=== PATIENT | female | born 1980 | race Caucasian/White ===

== ENCOUNTER 2017-08-13 03:09 | Emergency (ER) | payer OTHER ==
[2017-08-13 03:28] VITALS: BP 110/73
--- NOTE | 2017-08-13 04:02 | ER Document Report ---
ED ENT - General Chief Complaint: Sore Throat Stated Complaint: SORE THROAT Time Seen by Provider: 08/13/17 03:40 Mode of Arrival: Ambulatory Information source: Patient TRAVEL OUTSIDE OF THE [place] IN LAST 30 DAYS: No - HPI Patient complains to provider of: Throat problem Onset: This morning Onset/Duration: Gradual, Persistent Quality of pain: Achy Severity: Moderate Pain Level: 3 Location of pain: Throat Associated symptoms: Cough, Headache Notes: Patient is a 37-year-old female presenting to the emergency room complaining of throat pain since earlier today with left ear pain as well, and a mild headache , she has had a nonproductive cough, no fever, no vomiting or diarrhea, no sick contacts - Related Data Allergies/Adverse Reactions: No Known Allergies Allergy (Unverified 08/13/17 03:25) Past Medical History - General Information source: Patient - Social History Smoking Status: Unknown if Ever Smoked Family History: Reviewed & Not Pertinent Renal/ Medical History: Denies: Hx Peritoneal Dialysis Past Surgical History: Reports: Hx Tubal Ligation - Immunizations Hx Diphtheria, Pertussis, Tetanus Vaccination: Yes Review of Systems - Review of Systems Constitutional: No symptoms reported EENT: See HPI Cardiovascular: No symptoms reported Respiratory: No symptoms reported Gastrointestinal: No symptoms reported Genitourinary: No symptoms reported Female Genitourinary: No symptoms reported Musculoskeletal: No symptoms reported Skin: No symptoms reported Hematologic/Lymphatic: No symptoms reported Neurological/Psychological: Headaches -: Yes All other systems reviewed and negative Physical Exam - Vital signs Vitals: Temp Pulse Resp BP Pulse Ox 98.4 F 81 17 110/73 97 08/13/17 03:25 08/13/17 03:25 08/13/17 03:25 08/13/17 03:25 08/13/17 03:25 Interpretation: Normal - General General appearance: Appears well, Alert - HEENT Head: Normocephalic, Atraumatic Eyes: Normal Conjunctiva: Normal Extraocular movements intact: Yes Eyelashes: Normal Pupils: PERRL Ears: Normal External canal: Normal Tympanic membrane: Bulging. No: Injected Pharynx: Erythema. No: Exudate Neck: Normal - Respiratory Respiratory status: No respiratory distress Chest status: Nontender Breath sounds: Normal Chest palpation: Normal - Cardiovascular Rhythm: Regular Heart sounds: Normal auscultation Murmur: No - Abdominal Inspection: Normal Distension: No distension Bowel sounds: Normal Tenderness: Nontender Organomegaly: No organomegaly - Back Back: Normal, Nontender - Extremities General upper extremity: Normal inspection, Nontender, Normal color, Normal ROM , Normal temperature General lower extremity: Normal inspection, Nontender, Normal color, Normal ROM , Normal temperature, Normal weight bearing. No: Andre's sign - Neurological Neuro grossly intact: Yes Cognition: Normal Orientation: AAOx4 [place] Coma Scale Eye Opening: Spontaneous [place] Coma Scale Verbal: Oriented Randy Coma Scale Motor: Obeys Commands Randy Coma Scale Total: 15 Speech: Normal Motor strength normal: LUE, RUE, LLE, RLE Sensory: Normal - Psychological Associated symptoms: Normal affect, Normal mood - Skin Skin Temperature: Warm Skin Moisture: Dry Skin Color: Normal Course - Re-evaluation Re-evalutation: 08/13/17 04:30 Patient's rapid strep test was negative, however her posterior pharynx is quite beefy red, there were no exudates, and she is afebrile, I informed patient that symptoms are likely viral in nature, however a throat culture is pending and may come back with different findings, therefore she was given a prescription for penicillin and advised to take only if her symptoms worsen or she develops a fever in the next few days, or if she should receive a phone call from this hospital reporting her throat cultures have different findings than the rapid strep test, patient acknowledges understanding and agreement with this plan - Vital Signs Vital signs: Temp Pulse Resp BP Pulse Ox 98.4 F 81 17 110/73 97 08/13/17 03:25 08/13/17 03:25 08/13/17 03:25 08/13/17 03:25 08/13/17 03:25 Discharge - Discharge Clinical Impression: Sore throat Condition: Stable Disposition: HOME, SELF-CARE Instructions: Penicillin V K ([facility]), Sore Throat ([facility]), Strep Throat ([facility]) Additional Instructions: Although your strep test came back negative today your physical exam findings are consistent with possible strep pharyngitis. You have been given an antibiotic prescription in case her symptoms worsen. If you develop a fever or your sore throat worsens you should start taking this medication. Return to the emergency room immediately if symptoms worsen or any additional concerns. Follow-up with your primary care provider in 1-2 days. Prescriptions: Penicillin V Potassium [Penicillin Vk 500 mg Tablet] 500 mg PO BID #20 tablet
== END 2017-08-13 04:31 | disposition home or self-care (01) ==
LOC: ER 03:09
DX: J02.9 Acute pharyngitis, unspecified (principal); R51 Headache; R05 Cough
CPT/HCPCS: 87070; 87880; 99283

== ENCOUNTER 2018-09-03 22:00 | Emergency (ER) | payer OTHER ==
[2018-09-03 23:05] LABS: APPEARANCE,URINE CLEAR; BILIRUBIN,URINE NEGATIVE (NEGATIVE); COLOR,URINE STRAW; GLUCOSE, URINE NEGATIVE (NEGATIVE); KETONES,URINE NEGATIVE (NEGATIVE); LEUKOCYTE ESTERASE,URINE NEGATIVE (NEGATIVE); NITRITE,URINE NEGATIVE (NEGATIVE); PROTEIN,URINE NEGATIVE (NEGATIVE); UROBILINOGEN,URINE NEGATIVE mg/dL (<2.0)
[2018-09-03 23:06] LABS: URINE SPECIFIC GRAVITY 1.006
[2018-09-03 23:08] LABS: ABSOLUTE EOSINOPHILS # (AUTO) 0.3 10^3/uL (0.0-0.6); ABSOLUTE LYMPHOCYTES (AUTO) 0.7 10^3/uL (0.5-4.7); ABSOLUTE MONOCYTES (AUTO) 0.3 10^3/uL (0.1-1.4); BASOPHILS % (AUTO) 0.6 % (0-2); EOSINOPHILS % (AUTO) 5.2 % (0-6); HEMATOCRIT 36.2 % (36.0-47.0); HEMOGLOBIN 12.5 g/dL (12.0-15.5); LYMPHOCYTES % (AUTO) 10.5 % (13-45); MEAN CORPUSCULAR HEMOGLOBIN 29.6 pg (27.0-33.4); MEAN CORPUSCULAR HGB CONC 34.5 g/dL (32.0-36.0); MEAN CORPUSCULAR VOLUME 86 fl (80-97); PLATELET COUNT 210 10^3/uL (150-450); RED BLOOD COUNT 4.21 10^6/uL (3.72-5.28); RED CELL DISTRIBUTION WIDTH 12.9 % (11.5-14.0); SEGMENTED NEUTROPHILS % (AUTO) 79.7 % (42-78); TOTAL CELLS COUNTED % (AUTO) 100 %; WHITE BLOOD COUNT 6.3 10^3/uL (4.0-10.5)
[2018-09-03] MEDS ORDERED: ONDANSETRON 4 MG TAB.RAPDIS PO ONE (23:15)
--- NOTE | 2018-09-03 23:15 | ER Document Report ---
ED General - General Chief Complaint: Fever Stated Complaint: FEVER/VOMITING/LOWER BACK PAIN Time Seen by Provider: 09/03/18 22:40 Notes: Patient is a 38-year-old female without chronic medical problems who presents with multiple complaints. Her initial stated complaint is of fever as well as nausea and vomiting. However on my assessment she is complaining mostly about sinus pressure, postnasal drip and a feeling of nausea. She denies any abdominal pain. She states that she is having an intermittent, moderate to severe squeezing pain to her bilateral low back just above the level of her hip. Nothing improves or worsens her symptoms. Denies a history of similar symptoms in the past. Symptoms of been ongoing for approximately the past 10 days. She has seen her primary care doctor who is trying to discover the etiology of her rhinitis. She has not had a recorded fever at home only felt hot. TRAVEL OUTSIDE OF THE [place] IN LAST 30 DAYS: No - Related Data Allergies/Adverse Reactions: No Known Allergies Allergy (Unverified 08/13/17 03:25) Past Medical History - General Information source: Patient - Social History Smoking Status: Never Smoker Frequency of alcohol use: None Drug Abuse: None Lives with: Family Family History: Reviewed & Not Pertinent Renal/ Medical History: Denies: Hx Peritoneal Dialysis Past Surgical History: Reports: Hx Tubal Ligation - Immunizations Hx Diphtheria, Pertussis, Tetanus Vaccination: Yes Review of Systems - Review of Systems Notes: Constitutional: Negative for fever. HENT: Positive for sinus pressure and sore throat Eyes: Negative for visual changes. Cardiovascular: Negative for chest pain. Respiratory: Negative for shortness of breath. Gastrointestinal: Negative for abdominal pain, positive for nausea and vomiting Genitourinary: Negative for dysuria. Musculoskeletal: Positive for low back pain Skin: Negative for rash. Neurological: Negative for headaches, weakness or numbness. 10 point ROS negative except as marked above and in HPI. Physical Exam - Vital signs Vitals: Temp Pulse Resp BP Pulse Ox 99.1 F 86 16 100/62 98 09/03/18 22:17 09/03/18 22:17 09/03/18 22:17 09/03/18 22:17 09/03/18 22:17 Interpretation: Normal Notes: PHYSICAL EXAMINATION: GENERAL: Well-appearing, well-nourished and in no acute distress. HEAD: Atraumatic, normocephalic. EYES: Pupils equal round and reactive to light, extraocular movements intact, sclera anicteric, conjunctiva are normal. ENT: nares patent, oropharynx clear without exudates. Moist mucous membranes. NECK: Normal range of motion, supple without lymphadenopathy LUNGS: Breath sounds clear to auscultation bilaterally and equal. No wheezes rales or rhonchi. HEART: Regular rate and rhythm without murmurs ABDOMEN: Soft, nontender, normoactive bowel sounds. No guarding, no rebound. No masses appreciated. EXTREMITIES: Normal range of motion, no pitting or edema. No cyanosis. NEUROLOGICAL: No focal neurological deficits. Moves all extremities spontaneously and on command. PSYCH: Normal mood, normal affect. SKIN: Warm, Dry, normal turgor, no rashes or lesions noted. Course - Re-evaluation Re-evalutation: 09/03/18 23:14 Patient presents with multiple vague complaints that did not appear to be concerning for any acute life-threatening pathology. Vitals are within normal limits at triage and at time of discharge. Physical examination is unremarkable. Patient has tolerated oral intake without difficulty. Patient was not noted to be in distress at any point during their ER visit. Contrary to triage assessment the patient has not had a recorded fever at home and she also denies abdominal pain. Her only complaint is of sinus congestion, rhinorrhea, which she states has not been controlled with [id number] antihistamines or decongestants. She is currently following with her primary care doctor regarding this issue. At this time, based on the reassuring evaluation, I do not suspect an acute KS, pulmonary embolus, aortic dissection, acute intra-abdominal pathology, stroke, or sepsis. Will discharge with return precautions and follow-up recommendations. Verbal discharge instructions given a the bedside and opportunity for questions given. Medication warnings reviewed. Patient is in agreement with this plan and has verbalized understanding of return precautions and the need for primary care follow-up in the next 24-72 hours. - Vital Signs Vital signs: Temp Pulse Resp BP Pulse Ox 99.1 F 86 16 100/62 98 09/03/18 22:17 09/03/18 22:17 09/03/18 22:17 09/03/18 22:17 09/03/18 22:17 - Laboratory Result Diagrams: 09/03/18 22:52 09/03/18 22:52 Laboratory results interpreted by me: 09/03/18 09/03/18 22:52 22:52 Seg Neutrophils % 79.7 H Lymphocytes % 10.5 L Urine Blood SMALL H Discharge - Discharge Clinical Impression: Spasm of muscle of lower back, Nasal congestion, Nausea Allergic rhinitis Qualifiers: Allergic rhinitis trigger: unspecified Allergic rhinitis seasonality: unspecified Qualified Code(s): J30.9 - Allergic rhinitis, unspecified Condition: Good Disposition: HOME, SELF-CARE Additional Instructions: Please return to the emergency room immediately if you experience any concerning symptoms including high fevers, severe headache, chest pain, difficulty breathing, abdominal pain, slurred speech, numbness or weakness in your arms or legs, or any other symptom that concerns you.
[2018-09-03 23:17] LABS: ALANINE AMINOTRANSFERASE 30 U/L (9-52); ALBUMIN 3.8 g/dL (3.5-5.0); ALKALINE PHOSPHATASE 56 U/L (38-126); ANION GAP 7 (5-19); ASPARTATE AMINO TRANSFERASE 24 U/L (14-36); BILIRUBIN,DIRECT 0.2 mg/dL (0.0-0.4); BILIRUBIN,TOTAL 1.1 mg/dL (0.2-1.3); BLOOD UREA NITROGEN 8 mg/dL (7-20); CALCIUM 8.9 mg/dL (8.4-10.2); CARBON DIOXIDE 26 mmol/L (22-30); CHLORIDE 106 mmol/L (98-107); GLUCOSE 90 mg/dL (75-110); POTASSIUM 4.1 mmol/L (3.6-5.0); SODIUM 138.6 mmol/L (137-145); TOTAL PROTEIN 6.7 g/dL (6.3-8.2)
[2018-09-04 00:25] VITALS: BP 94/49
== END 2018-09-04 00:29 | disposition home or self-care (01) ==
LOC: ER 22:00
DX: J30.9 Allergic rhinitis, unspecified (principal); M62.830 Muscle spasm of back; R11.2 Nausea with vomiting, unspecified; R09.82 Postnasal drip; R09.81 Nasal congestion; J34.89 Other specified disorders of nose and nasal sinuses; J02.9 Acute pharyngitis, unspecified; M54.5 Low back pain
CPT/HCPCS: 99283; 36415; 84703; 85025; 80053; 81001; S0119

== ENCOUNTER 2018-09-23 19:39 | Observation (INO) | payer OTHER ==
[2018-09-23] MEDS ORDERED: CEFTRIAXONE 1 GM/D5W RTU 1 GM/50 ML RTUPB IV ONE (20:30)
[2018-09-23] MEDS ORDERED: HYDROMORPHONE HCL INJ/PF 2 MG/ML AMPULE IV ONE (20:30)
--- NOTE | 2018-09-23 20:31 | ER Document Report ---
ED Hand/Wrist Injury - General Mode of Arrival: Ambulatory Information source: Patient TRAVEL OUTSIDE OF THE [place] IN LAST 30 DAYS: No - HPI Injury to: Small finger Onset: Just prior to arrival Where: Home <FEDERICO RAYMOND - Last Filed: 09/23/18 23:45> <FREDRICK DE JESUS - Last Filed: 09/23/18 23:51> - General Chief Complaint: Finger Injury Stated Complaint: POSSIBLE BROKEN FINGER Time Seen by Provider: 09/23/18 20:20 Notes: Patient is a 38-year-old female presenting to the emergency department complaining 5th digit pain of the right hand onset tonight. Patient states she had her hand in a door when her boyfriend accidentally slammed the door. Patient repeatedly expresses concern for losing her 5th digit. She states her last meal was around 1700. Patient is up to date on her vaccines. (FEDERICO RAYMOND) - Related Data Allergies/Adverse Reactions: No Known Allergies Allergy (Unverified 08/13/17 03:25) Past Medical History - General Information source: Patient - Social History Smoking Status: Former Smoker Frequency of alcohol use: None Drug Abuse: None Family History: Reviewed & Not Pertinent Patient has suicidal ideation: No Patient has homicidal ideation: No Past Surgical History: Reports: Hx Tubal Ligation - Immunizations Hx Diphtheria, Pertussis, Tetanus Vaccination: Yes <FEDERICO RAYMOND - Last Filed: 09/23/18 23:45> Review of Systems - Review of Systems Constitutional: No symptoms reported EENT: No symptoms reported Cardiovascular: No symptoms reported Respiratory: No symptoms reported Gastrointestinal: No symptoms reported Genitourinary: No symptoms reported Female Genitourinary: No symptoms reported Musculoskeletal: See HPI Skin: No symptoms reported Hematologic/Lymphatic: No symptoms reported Neurological/Psychological: No symptoms reported -: Yes All other systems reviewed and negative <FEDERICO RAYMOND - Last Filed: 09/23/18 23:45> Physical Exam <FEDERICO RAYMOND - Last Filed: 09/23/18 23:45> <FREDRICK DE JESUS - Last Filed: 09/23/18 23:51> - Vital signs Vitals: Temp Pulse Resp BP Pulse Ox 99.2 F 103 H 22 H 120/78 100 09/23/18 20:05 09/23/18 20:05 09/23/18 20:05 09/23/18 20:05 09/23/18 20:05 - Notes Notes: GENERAL: Alert,crying. No acute distress. HEAD: Normocephalic, atraumatic. EYES: Pupils equal, round, and reactive to light. Extraocular movements intact. ENT: Oral mucosa moist, tongue midline. NECK: Full range of motion. Supple. Trachea midline. LUNGS: Clear to auscultation bilaterally, no wheezes, rales, or rhonchi. No respiratory distress. HEART: Regular rate and rhythm. No murmurs, gallops, or rubs. EXTREMITIES: Moves all 4 extremities spontaneously. Small abrasion to the radial aspect of the right 5th digit just proximal to the PIP joint. 1.5 cm laceration on the ulnar aspect just proximal to the PIP joint extending to the DIP joint. Sensations intact. Able to move pinky. Able to fully extend pinky finger. Unable fully flex 5th digit. NEUROLOGICAL: Alert and oriented x3. Normal speech. PSYCH: Crying, appears anxious. SKIN: Warm, dry, normal turgor. (FEDERICO RAYMOND) Course <FEDERICO RAYMOND - Last Filed: 09/23/18 23:45> <FREDRICK DE JESUS - Last Filed: 09/23/18 23:51> - Re-evaluation Re-evalutation: 09/23/18 20:[address] Mejía who states he will admit the patient to his services. Recommends to start Rocephin and to splint in the position of comfort. (FEDERICO RAYMOND) 09/23/18 20:32 X-ray shows comminuted displaced fracture of the proximal phalanx of the fifth digit of the right hand, this is an open fracture, it will need a washout and likely need to be pinned. I discussed with Dr. Mejía who asks her to be admitted to his service, it will be splinted in position of comfort, reduction will not be attempted, patient will be started on Rocephin and given pain medication. (FREDRICK DE JESUS) - Vital Signs Vital signs: Temp Pulse Resp BP Pulse Ox 99.2 F 103 H 22 H 120/78 100 09/23/18 20:05 09/23/18 20:05 09/23/18 20:05 09/23/18 20:05 09/23/18 20:05 Procedures - Immobilization Right Hand 5th digit Pre-Proc Neuro Vasc Exam: Normal Immobilizer type: Finger splint (Static) Performed by: RN, PCT Post-Proc Neuro Vasc Exam: Normal, Unchanged from pre-exam Alignment checked and good: No - No attempt at reduction was made, surgery scheduled for tomorrow <FREDRICK DE JESUS - Last Filed: 09/23/18 23:51> Discharge <FEDERICO RAYMOND - Last Filed: 09/23/18 23:45> - Discharge Admitting Provider: [facility] Unit Admitted: Surgical Floor <FREDRICK DE JESUS - Last Filed: 09/23/18 23:51> - Discharge Clinical Impression: Open fracture proximal phalanx finger Qualifiers: Encounter type: initial encounter Finger: little finger Fracture alignment: displaced Laterality: right Qualified Code(s): S62.616B - Displaced fracture of proximal phalanx of right little finger, initial encounter for open fracture Condition: Stable Disposition: ADMITTED INPATIENT Scribe Attestation: 09/23/18 23:51 I personally performed the services described in the documentation, reviewed and edited the documentation which was dictated to the scribe in my presence, and it accurately records my words and actions. (FREDRICK DE JESUS) Scribe Documentation - Scribe Written by Scribe:: Alexx Connelly, 09/23/2018 20:46 acting as scribe for :: Mark <FEDERICO RAYMOND - Last Filed: 09/23/18 23:45>
--- NOTE | 2018-09-23 20:40 | RADIOLOGY REPORT (SQ) ---
EXAM DESCRIPTION: FINGER RIGHT COMPLETED DATE/TIME: 09/23/2018 7:55 pm REASON FOR STUDY: Finger injury- closed in door. Slammed finger in the garage door. COMPARISON: None. NUMBER OF VIEWS: Three views. TECHNIQUE: AP view of the right hand and lateral, and oblique images acquired of the right fifth fin danielle. LIMITATIONS: None. FINDINGS: MINERALIZATION: Normal. BONES: There is an oblique, displaced fracture through the shaft of the 5th proximal phalanx. There is dorsal dislocation of the distal fracture fragment. There is approximately 7 mm bayonet appositio n of the fracture fragments. SOFT TISSUES: Soft tissue swelling at the 5th finger. No radiopaque foreign body. IMPRESSION: Displaced fracture through the shaft of the 5th proximal phalanx with dorsal dislocation of the distal fracture fragment. Soft tissue swelling at the 5th finger. COMMENT: SITE OF TRAUMA/COMPLAINT MARKED/STAMP COMPLETED: NO. TECHNICAL DOCUMENTATION: JOB ID: [id number] [employer]- All Rights Reserved Reading location - IP/workstation name: [email or web address]
[2018-09-23] MEDS ORDERED: OXYCODONE-ACETAMINOPHEN 5-325 MG TABLET PO ONE (22:27)
[2018-09-24] MEDS ORDERED: DEXTROSE 40% GEL 15 GM TUBE PO PRN ×2 (00:28)
[2018-09-24] MEDS ORDERED: GLUCAGON,HUMAN RECOMB 1 MG INJ SUBCUT PRN (00:28)
[2018-09-24] MEDS ORDERED: DEXTROSE 50%-WATER 25 GM/50 ML DISP.SYRIN IV PRN ×2 (00:28)
[2018-09-24] MEDS ORDERED: RINGERS SOLUTION,LACTATED 1,000 ML IV PRN (00:40)
[2018-09-24] MEDS: MORPHINE SULFATE 10 MG/ML INJ IV PRN ×3 (01:23→13:45)
--- NOTE | 2018-09-24 07:03 | PDOC H&P ---
History of Present Illness Admission Date/PCP: 09/23/18 20:49 ANT SELBY JR, MD History of Present Illness: LUIS BOBO is a 38 year old female 38-year-old white female [id number] who sustained a right hand injury when her small finger was caught in a car door. She was brought to the emergency room where an open proximal phalanx fracture was identified. She is admitted to orthopedic service for fracture management. Past Medical History Medical History: None Past Surgical History Past Surgical History: Reports: Tubal Ligation Social History Information Source: Patient, [facility] Records Smoking Status: Never Smoker Drugs: None - Advance Directive Resuscitation Status: Full Code Family History Family History: Reviewed & Not Pertinent Parental Family History Reviewed: No Children Family History Reviewed: No Sibling(s) Family History Reviewed.: No Medication/Allergy Home Medications: No Home Medications 09/23/18 Allergies/Adverse Reactions: No Known Allergies Allergy (Unverified 08/13/17 03:25) Review of Systems All systems: as per [facility] Physical Exam Vital Signs: Temp Pulse Resp BP Pulse Ox 36.6 C 67 17 98/62 L 100 09/24/18 00:16 09/24/18 00:16 09/24/18 00:16 09/24/18 00:16 09/24/18 00:16 Intake & Output 09/23/18 09/24/18 09/25/18 06:59 06:59 06:59 Weight 74.9 kg General appearance: PRESENT: no acute distress, mild distress, well-nourished Head exam: PRESENT: normocephalic Respiratory exam: PRESENT: unlabored Cardiovascular exam: PRESENT: RRR Pulses: PRESENT: normal radial pulses Vascular exam: PRESENT: normal capillary refill GI/Abdominal exam: PRESENT: soft Rectal exam: PRESENT: deferred Extremities exam: PRESENT: other - Capillary refill to the tuft of the small finger. Sensory examination intact to light touch. Swelling and ecchymosis over the ring finger. Neurological exam: PRESENT: alert, awake, oriented to person, oriented to place , oriented to time, oriented to situation. ABSENT: motor sensory deficit Psychiatric exam: PRESENT: appropriate affect, normal mood. ABSENT: homicidal ideation, suicidal ideation Skin exam: PRESENT: dry, intact, warm. ABSENT: cyanosis, rash Results Impressions: Finger X-Ray 09/23/18 00:00 IMPRESSION: Displaced fracture through the shaft of the 5th proximal phalanx with dorsal dislocation of the distal fracture fragment. Soft tissue swelling at the 5th finger. Status: Imported from PACS Assessment & Plan - Diagnosis (1) Open fracture proximal phalanx finger Qualifiers: Encounter type: initial encounter Finger: little finger Fracture alignment: displaced Laterality: right Qualified Code(s): S62.616B - Displaced fracture of proximal phalanx of right little finger, initial encounter for open fracture Is this a current diagnosis for this admission?: Yes Plan: Plan for irrigation debridement possible ORIF of right proximal phalanx fracture - Time Time Spent: 50 to 70 Minutes Anticipated discharge: Home Within: within 24 hours
[2018-09-24 07:18] LABS: HEMATOCRIT 30.7 % (36.0-47.0); HEMOGLOBIN 10.7 g/dL (12.0-15.5); MEAN CORPUSCULAR HEMOGLOBIN 29.6 pg (27.0-33.4); MEAN CORPUSCULAR HGB CONC 34.9 g/dL (32.0-36.0); MEAN CORPUSCULAR VOLUME 85 fl (80-97); PLATELET COUNT 188 10^3/uL (150-450); RED BLOOD COUNT 3.61 10^6/uL (3.72-5.28); RED CELL DISTRIBUTION WIDTH 12.8 % (11.5-14.0)
[2018-09-24] MEDS ORDERED: CEFTRIAXONE SODIUM 2,000 MG in DEXTROSE 5%-WATER 100 ML IV PRN (07:19)
[2018-09-24 07:23] LABS: PROTHROMBIN TIME 15.8 SEC (11.4-15.4)
[2018-09-24 07:37] LABS: ANION GAP 8 (5-19); BLOOD UREA NITROGEN 13 mg/dL (7-20); CALCIUM 8.6 mg/dL (8.4-10.2); CARBON DIOXIDE 24 mmol/L (22-30); CHLORIDE 109 mmol/L (98-107); GLUCOSE 91 mg/dL (75-110); POTASSIUM 3.8 mmol/L (3.6-5.0); SODIUM 141.4 mmol/L (137-145)
[2018-09-24] MEDS ORDERED: FENTANYL CITRATE INJ/PF 100 MCG/2 ML AMPUL ONE (14:28)
[2018-09-24] MEDS ORDERED: MIDAZOLAM 2 MG/2 ML INJ ONE (14:28)
[2018-09-24] MEDS ORDERED: ACETAMINOPHEN 1,000 MG/100 ML RTUPB IV ONE (14:28)
[2018-09-24] MEDS ORDERED: DEXAMETHASONE SOD PHOSPHATE INJ 4 MG/1 ML VIAL ONE (14:28)
[2018-09-24] MEDS ORDERED: ONDANSETRON HCL INJ/PF 4 MG/2 ML SDV ONE (14:28)
[2018-09-24] MEDS ORDERED: PROPOFOL INJ 200 MG/20 ML VIAL IV ONE (14:28)
[2018-09-24] MEDS ORDERED: CEFTRIAXONE INJ 1000 MG VIAL ONE (15:24)
[2018-09-24] MEDS ORDERED: BUPIVACAINE HCL 0.5 % INJ/PF 30 ML SDV ONE (16:00)
--- NOTE | 2018-09-24 16:18 | Discharge Summary ---
Discharge Summary (SDC) - Discharge Final Diagnosis: Open fracture right small finger proximal phalanx Date of Surgery: 09/24/18 Discharge Date: 09/24/18 Condition: Good Treatment or Instructions: Elevate right hand Prescriptions: Cephalexin Monohydrate [Keflex 500 mg Capsule] 500 mg PO Q6 #24 capsule Hydrocodone Bit/Acetaminophen [Hydrocodon-Acetaminophen 5-325] 1 each PO Q6 PRN #40 tablet PRN Reason: Referrals: SOLA TYLER,ANT Rausch MD [Primary Care Provider] - Follow up as needed Discharge Diet: As Tolerated, Regular Discharge Activity: Balance Activity w/Rest Home Care Assistance: None Needed Report the Following to Your Physician Immediately: Shortness of Breath, Fever over 101 Degrees, Drainage-Foul Smelling
--- NOTE | 2018-09-24 16:20 | Operative Report ---
Operative Report DATE OF SURGERY: 09/24/18 PREOPERATIVE DIAGNOSIS: Open fracture right small finger proximal phalanx OPERATION: Irrigation debridement of the wound to include skin, subcutaneous tissue, and bone fragments. Internal fixation of proximal phalanx fracture SURGEON: SHEILA WILCOX ANESTHESIA: LMAC PROCEDURE: With the patient supine on the operative table the right upper extremities prepped and draped in sterile fashion. The lateral incisions laceration which is at the level of the PIP joint is debrided and hemostasis obtained with electrocautery. A single 0.045 K wire was then advanced from proximal lateral to distal medial. Reduction in the lateral projection is anatomic. Reduction in the anterior posterior dimension has a mild angular deformity. Rotational appears to be anatomic with the fingers flexed into the palm. The laceration was reapproximated laterally with interrupted nylon sutures. A sterile compressive dressing was applied and the patient's return to the PACU satisfactory condition.
[2018-09-24] MEDS ORDERED: MORPHINE SULFATE 10 MG/ML INJ IV PRN (16:32)
[2018-09-24] MEDS ORDERED: MEPERIDINE HCL/PF INJ 25 MG/1 ML DISP.SYRIN IV PRN (16:32)
[2018-09-24] MEDS ORDERED: FENTANYL CITRATE INJ/PF 100 MCG/2 ML AMPUL IV PRN ×3 (16:32)
[2018-09-24] MEDS ORDERED: PROMETHAZINE HCL INJ 25 MG/1 ML VIAL IV PRN ×2 (16:32)
[2018-09-24] MEDS ORDERED: DIPHENHYDRAMINE HCL 50 MG/ML VIAL IV PRN (16:32)
[2018-09-24] MEDS ORDERED: ONDANSETRON HCL INJ/PF 4 MG/2 ML SDV IV PRN (16:32)
[2018-09-24 18:52] VITALS: BP 147/74
--- NOTE | 2018-09-24 19:57 | RADIOLOGY REPORT (SQ) ---
EXAM DESCRIPTION: NO CHG FLUORO; FINGER RIGHT COMPLETED DATE/TIME: 09/24/2018 6:31 pm REASON FOR STUDY: PERC PINNING 5TH DIGIT COMPARISON: None. FLUOROSCOPY TIME: 25 seconds 2 Images saved to PACS LIMITATIONS: None. PROCEDURE: Pinning of the 5th proximal phalanx. FINDINGS: 2 images from fluoro document placement of a pin in the 5th proximal phalanx. IMPRESSION: Pinning of the 5th proximal phalanx. Refer to operative note for further information. COMMENT: PQRS 6045F: Fluoroscopy time of the procedure is documented in the report. TECHNICAL DOCUMENTATION: JOB ID: [id number] [employer]- All Rights Reserved Reading location - IP/workstation name: [email or web address]
--- NOTE | 2018-09-24 19:57 | RADIOLOGY REPORT (SQ) ---
EXAM DESCRIPTION: NO CHG FLUORO; FINGER RIGHT COMPLETED DATE/TIME: 09/24/2018 6:31 pm REASON FOR STUDY: PERC PINNING 5TH DIGIT COMPARISON: None. FLUOROSCOPY TIME: 25 seconds 2 Images saved to PACS LIMITATIONS: None. PROCEDURE: Pinning of the 5th proximal phalanx. FINDINGS: 2 images from fluoro document placement of a pin in the 5th proximal phalanx. IMPRESSION: Pinning of the 5th proximal phalanx. Refer to operative note for further information. COMMENT: PQRS 6045F: Fluoroscopy time of the procedure is documented in the report. TECHNICAL DOCUMENTATION: JOB ID: [id number] [employer] All Rights Reserved Reading location - IP/workstation name: [email or web address]
== END 2018-09-24 18:19 | disposition home or self-care (01) ==
LOC: ER 19:39 → INTOOBSV 20:49 → EH 20:49 → 4S 09-24 00:14
PROVIDERS: ADMIT Orthopaedic Surgery; ATTEND Orthopaedic Surgery
PROC: 2W3JX1Z Immobilization of Right Finger using Splint (ICD-10-PCS; 2018-09-24)
PROC: 0PST04Z Reposition Right Finger Phalanx with Internal Fixation Device, Open Approach (ICD-10-PCS; 2018-09-24)
PROC: 0PH Upper Bones, Insertion (ICD-10-PCS; 2018-09-24)
PROC: 3E02340 Introduction of Influenza Vaccine into Muscle, Percutaneous Approach (ICD-10-PCS; principal; 2018-09-24 15:30)
DX: S62.616B Displaced fracture of proximal phalanx of right little finger, initial encounter for open fracture (principal); W23.0XXA Caught, crushed, jammed, or pinched between moving objects, initial encounter; Y92.009 Unspecified place in unspecified non-institutional (private) residence as the place of occurrence of the external cause; Z87.891 Personal history of nicotine dependence; Z23 Encounter for immunization
CPT/HCPCS: 99284; 36415; 85027; 85610; 85730; 80048; 73140 ×2; 90686; 29130; 26735; 11012; G0378; G0008; C1769; J2250; J3490; J1100; J3010; J2270; J1170; J2405; J7120; J2704; J0696; J0131; 01830; 90471

== ENCOUNTER 2019-09-04 21:01 | Emergency (ER) | payer OTHER ==
[2019-09-04 21:10] VITALS: BP 119/80
[2019-09-04] MEDS ORDERED: IBUPROFEN 600 MG TABLET PO ONE (22:09)
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
== END 2019-09-04 22:15 | disposition home or self-care (01) ==
LOC: ER 21:01
DX: R51 Headache (principal); V87.7XXA Person injured in collision between other specified motor vehicles (traffic), initial encounter
CPT/HCPCS: 99283